=== PATIENT | female | born 1930 | race Caucasian/White ===

== ENCOUNTER 2017-08-30 07:43 | Inpatient (IN) ==
[2017-08-27 10:37] LABS: Basophils % 0.5 % (0.0-0.8); Eosinophils # 0.2 10*3/uL (0.0-0.87); Eosinophils % 2.2 % (0.00-10.9); Hematocrit 34.6 VOL% (35.7-47.0); Immature Granulocytes % 0.8 %; Immature Granulocytes Absolute 0.07 #; Mean Corpuscular HGB Conc 31.8 GM/DL (32-36); Mean Corpuscular Hemoglobin 26 PG (27-34); Mean Corpuscular Volume 80.8 FL (87-102); Mean Platelet Volume 9.4 FL (9.6-12.0); Monocytes # 0.7 10*3/uL (0.11-0.8); Monocytes % 8.8 % (1.7-12.7); Neutrophils # 6.3 10*3/uL (1.4-7.4); Neutrophils % 75.7 % (38.7-73.9); Platelet Count 324 T/CUMM (130-400); Red Blood Count 4.28 MC/CUMM (3.8-5.5); Red Cell Distribution Width 13.1 % (9.3-17.3); White Blood Count 8.3 T/CUMM (4-12)
[2017-08-27 11:06] LABS: Bilirubin,Total 0.4 MG/DL (0.2-1.0); Calcium 9.7 MG/DL (8.5-10.1); Osmolality,Calculated 278.4 MOS/KG (273-304); Potassium 3.6 MMOL/L (3.5-5.1); Total Protein 6.7 G/DL (6.4-8.3)
[~2017-08-30 07:43] MED LIST: ceFAZolin 1,000 MG VIAL ONE; ceFAZolin 1,000 MG in SYRINGE 1 EACH IV ONE
[2017-08-30] MEDS ORDERED: LACTATED RINGERS 1,000 ML IV SCH (08:30)
[2017-08-30] MEDS ORDERED: LIDOCAINE 1%/EPI INJ 20 ML VIAL ONE (09:07)
[2017-08-30] MEDS ORDERED: BUPIVACAINE MPF 0.25% /EPI 30 ML VIAL ONE (09:07)
[2017-08-30] MEDS ORDERED: ROCURONIUM 100 MG/10 ML VIAL IV ONE ×2 (10:54→12:53)
[2017-08-30] MEDS ORDERED: SUGAMMADEX 200 MG/2 ML VIAL IV ONE (12:18)
[2017-08-30] MEDS ORDERED: SEVOFLURANE 1 UNIT/15 MINUTE INH ONE (12:52)
[2017-08-30] MEDS ORDERED: fentaNYL 100 MCG/2 ML VIAL ONE ×2 (12:52)
[2017-08-30] MEDS ORDERED: ETOMIDATE 40 MG/20 ML VIAL IV ONE (12:52)
[2017-08-30] MEDS ORDERED: ALBUMIN 5% 12.5 GM/250 ML VIAL IV ONE (12:52)
[2017-08-30] MEDS ORDERED: ONDANSETRON 4 MG/2 ML VIAL ONE (12:52)
[2017-08-30] MEDS ORDERED: GLYCOPYRROLATE 0.4 MG/2 ML VIAL ONE (12:53)
[2017-08-30] MEDS ORDERED: LACTATED RINGERS 1,000 ML IV ONE (12:53)
[2017-08-30] MEDS ORDERED: ONDANSETRON 4 MG/2 ML VIAL IV PRN (12:55)
[2017-08-30 12:56] LABS: Apearance,Urine CLEAR (Clear); Bilirubin,Urine Negative (Negative); Blood, Urine Negative (Negative); Glucose,Urine (UA) Negative (Negative); Ketones,Urine Negative (Negative); Mucus,Urine Occasional /LPF (Occasional); Nitrite,Urine Negative (Negative); Protein,Urine Negative; Urine Color Straw (Yellow); Urine Specific Gravity 1.006 (1.001-1.035); Urine Urobilinogen < 2.0 EU/DL (0.2-1.0)
[2017-08-30] MEDS: MORPHINE 10 MG/1 ML VIAL IV PRN ×3 (12:58→13:37)
[2017-08-30 14:35] LABS: Hematocrit 36.8 VOL% (35.7-47.0); Hemoglobin 11.5 GM/DL (12.0-16.0)
[2017-08-30] MEDS: MORPHINE 4 MG/1 ML VIAL IV PRN ×3 (15:05→23:27)
[2017-08-30] MEDS: DEXTROSE 5% LACTATED RINGERS 1,000 ML IV SCH (15:11)
[2017-08-30] MEDS ORDERED: cefOXitin 1,000 MG in SYRINGE 1 EACH IV SCH (18:00)
[2017-08-30] MEDS: cefOXitin 1,000 MG in SYRINGE 1 EACH IV SCH (19:38)
[2017-08-30] MEDS: LATANOPROST 0.005% OPH SOLN 2.5 ML BOTTLE BOTH EYES SCH (20:45)
[2017-08-30] MEDS: cloNIDine 0.1 MG TABLET PO SCH (20:45)
[2017-08-30 22:26] LABS: Hematocrit 32.4 VOL% (35.7-47.0); Hemoglobin 10.1 GM/DL (12.0-16.0)
[2017-08-31] MEDS: cefOXitin 1,000 MG in SYRINGE 1 EACH IV SCH ×4 (00:50→20:39)
[2017-08-31] MEDS: DEXTROSE 5% LACTATED RINGERS 1,000 ML IV SCH ×3 (00:50→20:39)
[2017-08-31 05:42] LABS: Basophils % 0.3 % (0.0-0.8); Eosinophils % 0.1 % (0.00-10.9); Immature Granulocytes % 0.7 %; Immature Granulocytes Absolute 0.08 #; Lymphocytes # 0.6 10*3/uL (1.4-4.0); Lymphocytes % 5.2 % (21.3-54.2); Mean Corpuscular HGB Conc 31.3 GM/DL (32-36); Mean Corpuscular Hemoglobin 25 PG (27-34); Mean Corpuscular Volume 81.4 FL (87-102); Mean Platelet Volume 9.6 FL (9.6-12.0); Monocytes # 0.9 10*3/uL (0.11-0.8); Monocytes % 7.4 % (1.7-12.7); Neutrophils # 10.5 10*3/uL (1.4-7.4); Neutrophils % 86.3 % (38.7-73.9); Platelet Count 296 T/CUMM (130-400); Red Blood Count 3.93 MC/CUMM (3.8-5.5); White Blood Count 12.2 T/CUMM (4-12)
[2017-08-31] MEDS: MORPHINE 4 MG/1 ML VIAL IV PRN ×3 (06:02→11:45)
[2017-08-31 06:12] LABS: Band Neutrophils 5 % (0-10); Lymphocytes 4 % (20-55); Platelet Estimate Normal; Segmented Neutrophils 89 % (50-85); Total Cells Counted 100
[2017-08-31 06:14] LABS: Albumin 2.6 G/DL (3.4-5.0); Bilirubin,Total 0.6 MG/DL (0.2-1.0); Calcium 8.8 MG/DL (8.5-10.1); Osmolality,Calculated 277.5 MOS/KG (273-304); Potassium 3.5 MMOL/L (3.5-5.1)
[2017-08-31] MEDS: PANTOPRAZOLE 40 MG VIAL IV SCH (08:26)
[2017-08-31] MEDS: traMADol 50 MG TABLET PO PRN (13:06)
[2017-08-31] MEDS ORDERED: HYDROmorphone 2 MG/1 ML VIAL IV PRN ×2 (14:29)
[2017-08-31] MEDS ORDERED: HYDROmorphone 2 MG/1 ML VIAL ONE (14:31)
[2017-08-31] MEDS: LATANOPROST 0.005% OPH SOLN 2.5 ML BOTTLE BOTH EYES SCH (20:39)
[2017-08-31] MEDS: cloNIDine 0.1 MG TABLET PO SCH (20:39)
[2017-09-01] MEDS: cefOXitin 1,000 MG in SYRINGE 1 EACH IV SCH ×4 (01:41→20:29)
[2017-09-01 07:09] LABS: Basophils % 0.3 % (0.0-0.8); Eosinophils # 0.1 10*3/uL (0.0-0.87); Eosinophils % 0.6 % (0.00-10.9); Hematocrit 28.7 VOL% (35.7-47.0); Hemoglobin 9.3 GM/DL (12.0-16.0); Immature Granulocytes % 0.7 %; Immature Granulocytes Absolute 0.08 #; Lymphocytes # 0.6 10*3/uL (1.4-4.0); Lymphocytes % 4.7 % (21.3-54.2); Mean Corpuscular HGB Conc 32.4 GM/DL (32-36); Mean Corpuscular Hemoglobin 26 PG (27-34); Mean Corpuscular Volume 79.3 FL (87-102); Mean Platelet Volume 9.3 FL (9.6-12.0); Monocytes # 0.8 10*3/uL (0.11-0.8); Monocytes % 6.9 % (1.7-12.7); Neutrophils # 10.2 10*3/uL (1.4-7.4); Neutrophils % 86.8 % (38.7-73.9); Platelet Count 280 T/CUMM (130-400); Red Blood Count 3.62 MC/CUMM (3.8-5.5); Red Cell Distribution Width 13.1 % (9.3-17.3); White Blood Count 11.8 T/CUMM (4-12)
[2017-09-01 07:25] LABS: Calcium 9.2 MG/DL (8.5-10.1); Osmolality,Calculated 276.5 MOS/KG (273-304); Potassium 3.7 MMOL/L (3.5-5.1)
[2017-09-01 07:57] LABS: Macrocytosis 1+; Microcytosis 2+
[2017-09-01] MEDS: PANTOPRAZOLE 40 MG VIAL IV SCH (08:28)
[2017-09-01 09:55] LABS: ABG Base Excess 5.9 MMOL/L (-2.5-2.5); ABG HCO3 29.7 MMOL/L (20-26); ABG Oxygen Saturation 89.8 % (95-100); ABG PCO2 48.2 MM HG (35-48); ABG PH 7.421 (7.35-7.45); ABG PO2 54.9 MM HG (80-95); ABG TCO2 28.6 MMOL/L (23-27); Allen Test Positive; Pt O2 Delivery Device Room Air
[2017-09-01] MEDS: cloNIDine 0.1 MG TABLET PO SCH (20:39)
[2017-09-01] MEDS: DEXTROSE 5% LACTATED RINGERS 1,000 ML IV SCH ×2 (20:41)
[2017-09-01] MEDS: LATANOPROST 0.005% OPH SOLN 2.5 ML BOTTLE BOTH EYES SCH (22:36)
[2017-09-02] MEDS: cefOXitin 1,000 MG in SYRINGE 1 EACH IV SCH ×3 (00:35→18:24)
[2017-09-02] MEDS: DEXTROSE 5% LACTATED RINGERS 1,000 ML IV SCH ×2 (00:41→13:17)
[2017-09-02 08:08] LABS: Basophils % 0.3 % (0.0-0.8); Eosinophils # 0.1 10*3/uL (0.0-0.87); Eosinophils % 2.3 % (0.00-10.9); Hematocrit 30.6 VOL% (35.7-47.0); Hemoglobin 9.5 GM/DL (12.0-16.0); Immature Granulocytes % 0.3 %; Immature Granulocytes Absolute 0.02 #; Lymphocytes # 0.5 10*3/uL (1.4-4.0); Lymphocytes % 8.9 % (21.3-54.2); Mean Corpuscular Hemoglobin 25 PG (27-34); Mean Corpuscular Volume 81.6 FL (87-102); Mean Platelet Volume 9.3 FL (9.6-12.0); Monocytes # 0.6 10*3/uL (0.11-0.8); Monocytes % 9.4 % (1.7-12.7); Neutrophils # 4.8 10*3/uL (1.4-7.4); Neutrophils % 78.8 % (38.7-73.9); Platelet Count 307 T/CUMM (130-400); Red Blood Count 3.75 MC/CUMM (3.8-5.5); Red Cell Distribution Width 13.2 % (9.3-17.3); White Blood Count 6.1 T/CUMM (4-12)
[2017-09-02 08:48] LABS: Bilirubin,Total 0.5 MG/DL (0.2-1.0); Calcium 9.3 MG/DL (8.5-10.1); Osmolality,Calculated 278.4 MOS/KG (273-304); Potassium 3.7 MMOL/L (3.5-5.1); Total Protein 5.1 G/DL (6.4-8.3)
[2017-09-02 10:19] LABS: Hypochromasia 1+
[2017-09-02] MEDS: PANTOPRAZOLE 40 MG VIAL IV SCH (10:32)
[2017-09-02 14:42] LABS: % Iron Saturation 8.1 % (18-50)
[2017-09-02 19:18] LABS: Folate 13.1 NG/ML (5.4-24.0)
[2017-09-02] MEDS: cloNIDine 0.1 MG TABLET PO SCH (21:31)
[2017-09-02] MEDS: LATANOPROST 0.005% OPH SOLN 2.5 ML BOTTLE BOTH EYES SCH (22:28)
[2017-09-03] MEDS: ONDANSETRON 4 MG/2 ML VIAL IV PRN (00:14)
[2017-09-03] MEDS: cefOXitin 1,000 MG in SYRINGE 1 EACH IV SCH ×4 (00:33→19:06)
[2017-09-03] MEDS: DEXTROSE 5% LACTATED RINGERS 1,000 ML IV SCH (01:20)
[2017-09-03 06:39] LABS: Basophils % 0.5 % (0.0-0.8); Eosinophils # 0.2 10*3/uL (0.0-0.87); Eosinophils % 4.2 % (0.00-10.9); Hematocrit 26.9 VOL% (35.7-47.0); Hemoglobin 8.6 GM/DL (12.0-16.0); Immature Granulocytes % 0.5 %; Immature Granulocytes Absolute 0.02 #; Lymphocytes # 0.8 10*3/uL (1.4-4.0); Lymphocytes % 17.9 % (21.3-54.2); Mean Corpuscular Hemoglobin 25 PG (27-34); Mean Corpuscular Volume 79.6 FL (87-102); Mean Platelet Volume 9.6 FL (9.6-12.0); Monocytes # 0.6 10*3/uL (0.11-0.8); Monocytes % 13.2 % (1.7-12.7); Neutrophils # 2.7 10*3/uL (1.4-7.4); Neutrophils % 63.7 % (38.7-73.9); Platelet Count 277 T/CUMM (130-400); Red Blood Count 3.38 MC/CUMM (3.8-5.5); Red Cell Distribution Width 13.1 % (9.3-17.3); White Blood Count 4.3 T/CUMM (4-12)
[2017-09-03 06:54] LABS: Osmolality,Calculated 278.4 MOS/KG (273-304); Potassium 3.4 MMOL/L (3.5-5.1)
[2017-09-03 07:29] LABS: Platelet Estimate Normal
[2017-09-03 07:30] LABS: Microcytosis 1+
[2017-09-03] MEDS: PANTOPRAZOLE 40 MG VIAL IV SCH (08:46)
[2017-09-03] MEDS ORDERED: POTASSIUM CHLORIDE RIDER 10 MEQ in PREMIX 1 EACH IV PRN (11:11)
[2017-09-03 11:27] LABS: ABG Base Excess 6.9 MMOL/L (-2.5-2.5); ABG HCO3 30.7 MMOL/L (20-26); ABG Oxygen Saturation 95.4 % (95-100); ABG PCO2 43.1 MM HG (35-48); ABG PO2 70.1 MM HG (80-95); Allen Test Positive
[2017-09-03] MEDS: FERRIC GLUCONATE COMPLEX 125 MG in SODIUM CHLORIDE 0.9% 100 ML IV SCH (12:39)
[2017-09-03] MEDS: cloNIDine 0.1 MG TABLET PO SCH (20:51)
[2017-09-03] MEDS: LATANOPROST 0.005% OPH SOLN 2.5 ML BOTTLE BOTH EYES SCH (20:53)
[2017-09-04] MEDS: cefOXitin 1,000 MG in SYRINGE 1 EACH IV SCH ×4 (00:16→18:22)
[2017-09-04] MEDS: DEXTROSE 5% LACTATED RINGERS 1,000 ML IV SCH ×2 (00:56→23:00)
[2017-09-04] MEDS: PANTOPRAZOLE 40 MG VIAL IV SCH (09:21)
[2017-09-04] MEDS: FERRIC GLUCONATE COMPLEX 125 MG in SODIUM CHLORIDE 0.9% 100 ML IV SCH (09:25)
[2017-09-04] MEDS: ONDANSETRON 4 MG/2 ML VIAL IV PRN (10:56)
[2017-09-04] MEDS ORDERED: BISACODYL 10 MG SUPP RECTAL ONE (14:12)
[2017-09-04] MEDS: ENOXAPARIN 40 MG/0.4 ML SYRINGE SUBCUT SCH (18:21)
[2017-09-04] MEDS: cloNIDine 0.1 MG TABLET PO SCH (20:38)
[2017-09-04] MEDS: LATANOPROST 0.005% OPH SOLN 2.5 ML BOTTLE BOTH EYES SCH (20:41)
[2017-09-05] MEDS: cefOXitin 1,000 MG in SYRINGE 1 EACH IV SCH ×3 (00:22→12:59)
[2017-09-05] MEDS: ENOXAPARIN 40 MG/0.4 ML SYRINGE SUBCUT SCH (04:49)
[2017-09-05 06:08] LABS: Calcium 8.8 MG/DL (8.5-10.1); Osmolality,Calculated 280.3 MOS/KG (273-304)
[2017-09-05] MEDS: PANTOPRAZOLE 40 MG VIAL IV SCH (08:25)
[2017-09-05] MEDS: FERRIC GLUCONATE COMPLEX 125 MG in SODIUM CHLORIDE 0.9% 100 ML IV SCH (08:29)
[2017-09-05] MEDS: APIXABAN 5 MG TABLET PO SCH ×2 (12:59→21:32)
[2017-09-05] MEDS: traMADol 50 MG TABLET PO PRN (15:17)
[2017-09-05] MEDS: LATANOPROST 0.005% OPH SOLN 2.5 ML BOTTLE BOTH EYES SCH (21:32)
[2017-09-05] MEDS: cloNIDine 0.1 MG TABLET PO SCH (21:32)
[2017-09-05] MEDS: POTASSIUM CHLORIDE 20 MEQ TABLET PO PRN ×2 (22:10→23:46)
[2017-09-06] MEDS: POTASSIUM CHLORIDE 20 MEQ TABLET PO PRN ×3 (01:25→14:54)
[2017-09-06 05:48] LABS: Calcium 8.7 MG/DL (8.5-10.1); Osmolality,Calculated 275.4 MOS/KG (273-304); Potassium 3.7 MMOL/L (3.5-5.1)
[2017-09-06] MEDS: PANTOPRAZOLE 40 MG VIAL IV SCH (08:43)
[2017-09-06] MEDS: FERRIC GLUCONATE COMPLEX 125 MG in SODIUM CHLORIDE 0.9% 100 ML IV SCH (08:43)
[2017-09-06] MEDS: APIXABAN 5 MG TABLET PO SCH ×2 (08:43→20:50)
[2017-09-06] MEDS: cloNIDine 0.1 MG TABLET PO SCH (20:50)
[2017-09-06] MEDS: LATANOPROST 0.005% OPH SOLN 2.5 ML BOTTLE BOTH EYES SCH (20:50)
[2017-09-07 05:41] LABS: Basophils % 0.4 % (0.0-0.8); Eosinophils # 0.3 10*3/uL (0.0-0.87); Eosinophils % 3.6 % (0.00-10.9); Hematocrit 27.1 VOL% (35.7-47.0); Hemoglobin 8.6 GM/DL (12.0-16.0); Immature Granulocytes % 6.3 %; Immature Granulocytes Absolute 0.51 #; Lymphocytes # 0.7 10*3/uL (1.4-4.0); Lymphocytes % 9.1 % (21.3-54.2); Mean Corpuscular HGB Conc 31.7 GM/DL (32-36); Mean Corpuscular Hemoglobin 25 PG (27-34); Mean Corpuscular Volume 79.9 FL (87-102); Mean Platelet Volume 9.5 FL (9.6-12.0); Monocytes # 0.8 10*3/uL (0.11-0.8); Monocytes % 9.4 % (1.7-12.7); Neutrophils # 5.8 10*3/uL (1.4-7.4); Neutrophils % 71.2 % (38.7-73.9); Platelet Count 251 T/CUMM (130-400); Red Blood Count 3.39 MC/CUMM (3.8-5.5); Red Cell Distribution Width 14.3 % (9.3-17.3); White Blood Count 8.1 T/CUMM (4-12)
[2017-09-07 06:04] LABS: Calcium 8.6 MG/DL (8.5-10.1); Osmolality,Calculated 275.4 MOS/KG (273-304); Potassium 3.4 MMOL/L (3.5-5.1)
[2017-09-07 06:18] LABS: Band Neutrophils 3 % (0-10); Eosinophils 1 % (0-10); Hypochromasia 1+; Lymphocytes 8 % (20-55); Microcytosis 1+; Myelocytes 3 %; Segmented Neutrophils 78 % (50-85); Total Cells Counted 100
[2017-09-07 06:19] LABS: Platelet Estimate Normal
[2017-09-07] MEDS: PANTOPRAZOLE 40 MG VIAL IV SCH (08:42)
[2017-09-07] MEDS: FERRIC GLUCONATE COMPLEX 125 MG in SODIUM CHLORIDE 0.9% 100 ML IV SCH (08:42)
[2017-09-07] MEDS: APIXABAN 5 MG TABLET PO SCH ×2 (08:42→21:04)
[2017-09-07] MEDS: cloNIDine 0.1 MG TABLET PO SCH (21:04)
[2017-09-07] MEDS: LATANOPROST 0.005% OPH SOLN 2.5 ML BOTTLE BOTH EYES SCH (21:07)
[2017-09-08] MEDS: APIXABAN 5 MG TABLET PO SCH ×2 (09:51→21:19)
[2017-09-08] MEDS: PANTOPRAZOLE 40 MG VIAL IV SCH (09:51)
[2017-09-08] MEDS: FERRIC GLUCONATE COMPLEX 125 MG in SODIUM CHLORIDE 0.9% 100 ML IV SCH (09:52)
[2017-09-08] MEDS: cloNIDine 0.1 MG TABLET PO SCH (21:19)
[2017-09-08] MEDS: LATANOPROST 0.005% OPH SOLN 2.5 ML BOTTLE BOTH EYES SCH (21:24)
[2017-09-09] MEDS: APIXABAN 5 MG TABLET PO SCH ×2 (10:40→21:47)
[2017-09-09] MEDS: PANTOPRAZOLE 40 MG VIAL IV SCH (10:40)
[2017-09-09] MEDS: FERRIC GLUCONATE COMPLEX 125 MG in SODIUM CHLORIDE 0.9% 100 ML IV SCH (11:15)
[2017-09-09] MEDS: cloNIDine 0.1 MG TABLET PO SCH (21:44)
[2017-09-09] MEDS: LATANOPROST 0.005% OPH SOLN 2.5 ML BOTTLE BOTH EYES SCH (21:47)
[2017-09-09] MEDS: POTASSIUM CHLORIDE 20 MEQ TABLET PO PRN (21:56)
[2017-09-10] MEDS: APIXABAN 5 MG TABLET PO SCH (09:42)
[2017-09-10] MEDS: PANTOPRAZOLE 40 MG VIAL IV SCH (09:44)
[2017-09-10] MEDS: FERRIC GLUCONATE COMPLEX 125 MG in SODIUM CHLORIDE 0.9% 100 ML IV SCH (09:50)
[2017-09-10 11:37] VITALS: BP 152/58
== END 2017-09-10 14:54 | disposition home health service (06) | DRG 330 ==
LOC: N.SDSINP 07:43 → N.ICU 12:38 → N.3E 09-01 14:54
PROVIDERS: ADMIT Surgery; ATTEND Surgery

== ENCOUNTER 2018-06-14 00:27 | Inpatient (IN) ==
[2018-06-14] MEDS ORDERED: ONDANSETRON 4 MG/2 ML VIAL IV STA (01:08)
[2018-06-14] MEDS ORDERED: ALUM/MAG/SIMETH/LIDO VISC 1:1 30 ML BOTTLE PO STA (01:08)
[2018-06-14] MEDS ORDERED: PANTOPRAZOLE 40 MG VIAL IV STA (01:08)
[2018-06-14] MEDS ORDERED: SODIUM CHLORIDE 0.9% 500 ML IV STA (01:08)
[2018-06-14 01:18] LABS: Basophils # 0.1 10*3/uL (0.0-0.2); Basophils % 0.5 % (0.0-0.8); Eosinophils # 0.1 10*3/uL (0.0-0.87); Eosinophils % 0.5 % (0.00-10.9); Hematocrit 44.5 VOL% (35.7-47.0); Hemoglobin 14.1 GM/DL (12.0-16.0); Immature Granulocytes % 0.4 %; Immature Granulocytes Absolute 0.04 #; Lymphocytes # 0.8 10*3/uL (1.4-4.0); Lymphocytes % 6.8 % (21.3-54.2); Mean Corpuscular HGB Conc 31.7 GM/DL (32-36); Mean Corpuscular Hemoglobin 27 PG (27-34); Mean Corpuscular Volume 85.9 FL (87-102); Mean Platelet Volume 9.9 FL (9.6-12.0); Monocytes # 0.5 10*3/uL (0.11-0.8); Monocytes % 4.3 % (1.7-12.7); Neutrophils # 9.7 10*3/uL (1.4-7.4); Neutrophils % 87.5 % (38.7-73.9); Platelet Count 175 T/CUMM (130-400); Red Blood Count 5.18 MC/CUMM (3.8-5.5); Red Cell Distribution Width 13.5 % (9.3-17.3); White Blood Count 11.1 T/CUMM (4-12)
[2018-06-14 01:36] LABS: Albumin 4.1 G/DL (3.4-5.0); Bilirubin,Total 0.7 MG/DL (0.2-1.0); Calcium 9.6 MG/DL (8.5-10.1); Potassium 3.8 MMOL/L (3.5-5.1); Total Protein 6.9 G/DL (6.4-8.3)
[2018-06-14 01:44] LABS: Apearance,Urine CLEAR (Clear); Bilirubin,Urine Negative (Negative); Blood, Urine Negative (Negative); Glucose,Urine (UA) Negative (Negative); Ketones,Urine Negative (Negative); Mucus,Urine Occasional /LPF (Occasional); Nitrite,Urine Negative (Negative); Protein,Urine Negative; RBC,Urine 1 /HPF (0-4); Urine Color Yellow (Yellow); Urine Urobilinogen < 2.0 EU/DL (0.2-1.0); WBC,Urine 1 /HPF (0-6)
[2018-06-14] MEDS ORDERED: ONDANSETRON 4 MG/2 ML VIAL IV ONE (04:14)
[2018-06-14] MEDS ORDERED: MORPHINE 4 MG/1 ML VIAL IV STA (04:14)
[2018-06-14] MEDS ORDERED: ONDANSETRON 4 MG/2 ML VIAL IV PRN (05:07)
[2018-06-14] MEDS ORDERED: MORPHINE 4 MG/1 ML VIAL IV PRN (05:07)
[2018-06-14] MEDS ORDERED: PNEUMOCOCCAL VACCINE (13 VALENT) 0.5 ML SYRINGE IM ONE (05:51)
[2018-06-14] MEDS: SODIUM CHLORIDE 0.9% 1,000 ML IV SCH ×3 (06:22→17:21)
[2018-06-14] MEDS: PANTOPRAZOLE 40 MG VIAL IV SCH (10:05)
[2018-06-15] MEDS: SODIUM CHLORIDE 0.9% 1,000 ML IV SCH ×3 (03:04→23:05)
[2018-06-15 05:36] LABS: Basophils % 0.5 % (0.0-0.8); Eosinophils # 0.2 10*3/uL (0.0-0.87); Eosinophils % 2.7 % (0.00-10.9); Hematocrit 39.3 VOL% (35.7-47.0); Hemoglobin 12.1 GM/DL (12.0-16.0); Immature Granulocytes % 0.4 %; Immature Granulocytes Absolute 0.03 #; Lymphocytes # 1.1 10*3/uL (1.4-4.0); Lymphocytes % 14.5 % (21.3-54.2); Mean Corpuscular HGB Conc 30.8 GM/DL (32-36); Mean Corpuscular Hemoglobin 27 PG (27-34); Mean Corpuscular Volume 89.1 FL (87-102); Mean Platelet Volume 10.3 FL (9.6-12.0); Monocytes # 0.5 10*3/uL (0.11-0.8); Monocytes % 7.1 % (1.7-12.7); Neutrophils # 5.4 10*3/uL (1.4-7.4); Neutrophils % 74.8 % (38.7-73.9); Platelet Count 155 T/CUMM (130-400); Red Blood Count 4.41 MC/CUMM (3.8-5.5); Red Cell Distribution Width 13.4 % (9.3-17.3); White Blood Count 7.3 T/CUMM (4-12)
[2018-06-15 05:50] LABS: Calcium 8.8 MG/DL (8.5-10.1); Osmolality,Calculated 283.1 MOS/KG (273-304); Potassium 3.5 MMOL/L (3.5-5.1)
[2018-06-15] MEDS: PANTOPRAZOLE 40 MG VIAL IV SCH (08:34)
[2018-06-15] MEDS ORDERED: PHENOL 1.4% THROAT SPRAY 177 ML BOTTLE PO PRN (19:38)
[2018-06-16] MEDS: PANTOPRAZOLE 40 MG VIAL IV SCH (08:41)
[2018-06-16] MEDS: SODIUM CHLORIDE 0.9% 1,000 ML IV SCH (09:03)
[2018-06-16] MEDS: DEXT 5% NACL 0.45% KCL 10 MEQ 10 MEQ/1,000 ML BAG IV SCH ×2 (11:46→21:30)
[2018-06-17] MEDS: DEXT 5% NACL 0.45% KCL 10 MEQ 10 MEQ/1,000 ML BAG IV SCH (05:20)
[2018-06-17 05:27] LABS: Basophils % 0.6 % (0.0-0.8); Eosinophils # 0.2 10*3/uL (0.0-0.87); Eosinophils % 3.1 % (0.00-10.9); Hematocrit 38.4 VOL% (35.7-47.0); Hemoglobin 12.8 GM/DL (12.0-16.0); Immature Granulocytes % 0.4 %; Immature Granulocytes Absolute 0.03 #; Lymphocytes # 0.8 10*3/uL (1.4-4.0); Lymphocytes % 11.1 % (21.3-54.2); Mean Corpuscular HGB Conc 33.3 GM/DL (32-36); Mean Corpuscular Hemoglobin 28 PG (27-34); Mean Corpuscular Volume 83.8 FL (87-102); Mean Platelet Volume 10.3 FL (9.6-12.0); Monocytes # 0.7 10*3/uL (0.11-0.8); Monocytes % 9.3 % (1.7-12.7); Neutrophils # 5.4 10*3/uL (1.4-7.4); Neutrophils % 75.5 % (38.7-73.9); Platelet Count 175 T/CUMM (130-400); Red Blood Count 4.58 MC/CUMM (3.8-5.5); White Blood Count 7.1 T/CUMM (4-12)
[2018-06-17 05:35] LABS: Calcium 9.6 MG/DL (8.5-10.1); Osmolality,Calculated 280.3 MOS/KG (273-304)
[2018-06-17] MEDS ORDERED: POTASSIUM CHLORIDE 20 MEQ TABLET PO ONE (08:46)
[2018-06-17] MEDS: PANTOPRAZOLE 40 MG VIAL IV SCH (08:53)
[2018-06-17 16:01] VITALS: BP 178/114
== END 2018-06-17 15:40 | disposition home or self-care (01) | DRG 390 ==
LOC: EDUNIT# 00:27 → EDBD 00:27 → N.ED 00:27 → N.EDINP 05:07 → SUATTDRO 05:07 → N.3E 05:21
PROVIDERS: ADMIT Internal Medicine; ATTEND Internal Medicine Geriatric Medicine

== ENCOUNTER 2018-09-20 22:27 | Inpatient (IN) ==
[2018-09-20] MEDS ORDERED: ONDANSETRON 4 MG/2 ML VIAL IV STA (23:01)
[2018-09-20] MEDS ORDERED: SODIUM CHLORIDE 0.9% 500 ML IV STA (23:02)
[2018-09-20 23:40] LABS: Basophils # 0.1 10*3/uL (0.0-0.2); Basophils % 0.4 % (0.0-0.8); Eosinophils # 0.1 10*3/uL (0.0-0.87); Eosinophils % 0.4 % (0.00-10.9); Hematocrit 47.3 VOL% (35.7-47.0); Hemoglobin 15.1 GM/DL (12.0-16.0); Immature Granulocytes % 0.5 %; Immature Granulocytes Absolute 0.07 #; Lymphocytes # 0.8 10*3/uL (1.4-4.0); Lymphocytes % 5.6 % (21.3-54.2); Mean Corpuscular HGB Conc 31.9 GM/DL (32-36); Mean Corpuscular Volume 86.8 FL (87-102); Mean Platelet Volume 10.2 FL (9.6-12.0); Monocytes % 3.1 % (1.7-12.7); Platelet Count 213 T/CUMM (130-400); Red Blood Count 5.45 MC/CUMM (3.8-5.5); Red Cell Distribution Width 13.2 % (9.3-17.3); White Blood Count 13.4 T/CUMM (4-12)
[2018-09-20 23:44] LABS: Albumin 4.1 G/DL (3.4-5.0); Bilirubin,Total 0.7 MG/DL (0.2-1.0); Calcium 10.2 MG/DL (8.5-10.1); Osmolality,Calculated 286.3 MOS/KG (273-304); Total Protein 7.4 G/DL (6.4-8.3)
[2018-09-21 00:50] LABS: Apearance,Urine CLEAR (Clear); Bacteria,Urine Occasional /HPF (Few); Bilirubin,Urine Negative (Negative); Blood, Urine Negative (Negative); Glucose,Urine (UA) Negative (Negative); Ketones,Urine 5 mg/dL (Negative); Mucus,Urine Occasional /LPF (Occasional); Nitrite,Urine Negative (Negative); Protein,Urine Negative; RBC,Urine 2 /HPF (0-4); Renal Epithelial Cells,Urine Occasional /HPF (<1); Urine Color Yellow (Yellow); Urine Urobilinogen < 2.0 EU/DL (0.2-1.0); WBC,Urine 2 /HPF (0-6)
[2018-09-21] MEDS ORDERED: ONDANSETRON 4 MG/2 ML VIAL IV PRN (03:23)
[2018-09-21] MEDS: LACTATED RINGERS 1,000 ML IV SCH ×3 (03:46→20:09)
[2018-09-22] MEDS: LACTATED RINGERS 1,000 ML IV SCH ×2 (04:39→12:51)
[2018-09-22] MEDS: hydrALAZINE 20 MG/1 ML VIAL IV PRN (08:22)
[2018-09-22 12:13] LABS: Calcium 9.7 MG/DL (8.5-10.1); Osmolality,Calculated 277.4 MOS/KG (273-304)
[2018-09-22] MEDS: LISINOPRIL/HCTZ 10-12.5 MG TABLET PO SCH (14:20)
[2018-09-22] MEDS ORDERED: LATANOPROST 0.005% OPH SOLN 2.5 ML BOTTLE BOTH EYES SCH (21:00)
[2018-09-22] MEDS ORDERED: SIMVASTATIN 20 MG TABLET PO SCH (21:00)
[2018-09-22] MEDS: POTASSIUM CHLORIDE 20 MEQ TABLET PO PRN (21:37)
[2018-09-23] MEDS: hydrALAZINE 20 MG/1 ML VIAL IV PRN (00:41)
[2018-09-23 05:45] LABS: Basophils % 0.4 % (0.0-0.8); Eosinophils # 0.1 10*3/uL (0.0-0.87); Eosinophils % 1.2 % (0.00-10.9); Hematocrit 40.9 VOL% (35.7-47.0); Hemoglobin 13.3 GM/DL (12.0-16.0); Immature Granulocytes % 0.4 %; Immature Granulocytes Absolute 0.03 #; Lymphocytes # 0.7 10*3/uL (1.4-4.0); Lymphocytes % 9.7 % (21.3-54.2); Mean Corpuscular HGB Conc 32.5 GM/DL (32-36); Mean Corpuscular Volume 85.9 FL (87-102); Monocytes % 6.2 % (1.7-12.7); Neutrophils % 82.1 % (38.7-73.9); Platelet Count 192 T/CUMM (130-400); Red Blood Count 4.76 MC/CUMM (3.8-5.5); Red Cell Distribution Width 13.2 % (9.3-17.3); White Blood Count 7.2 T/CUMM (4-12)
[2018-09-23 05:54] LABS: Osmolality,Calculated 282.1 MOS/KG (273-304)
[2018-09-23] MEDS ORDERED: POTASSIUM CHLORIDE 20 MEQ TABLET PO ONE (08:45)
[2018-09-23] MEDS: LISINOPRIL/HCTZ 10-12.5 MG TABLET PO SCH (09:22)
[2018-09-23 11:07] VITALS: BP 154/96
[2018-09-23] MEDS: POTASSIUM CHLORIDE 20 MEQ TABLET PO PRN (11:35)
== END 2018-09-23 14:37 | disposition home health service (06) | DRG 390 ==
LOC: EDUNIT# → EDBD → N.ED 22:27 → N.EDINP 09-21 01:50 → N.3E 09-21 02:11
PROVIDERS: ADMIT Surgery; ATTEND Surgery